=== PATIENT | female | born 2000 | race African-American/Black ===

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

== ENCOUNTER 2021-10-12 13:46 | Emergency (ER) | payer OTHER ==
[2021-10-12 14:06] VITALS: BP 107/69; PULSE 76; TEMP 97.9; BMI 24.1
[2021-10-12 14:59] LABS: EPI CELLS 26 /uL (0-25.1); HYALINE CASTS 2 /uL (0-3.1); PH,URINE 6.5 (5.0-8.0); URINE APPEARANCE CLOUDY; URINE BACTERIA 1481 /uL (0-1359); URINE BILIRUBIN NEGATIVE (NEGATIVE); URINE COLOR YELLOW; URINE GLUCOSE (UA) NEGATIVE (NEGATIVE); URINE KETONE TRACE (NEGATIVE); URINE LEUK ESTERASE 3+ (NEGATIVE); URINE NITRITE NEGATIVE (NEGATIVE); URINE PROTEIN NEGATIVE (NEGATIVE); URINE RBC 18 /uL (0-23.9); URINE WBC 2126 /uL (0-25.8)
== END 2021-10-12 15:08 | disposition home or self-care (01) ==
LOC: JERFT 13:46 → JER 13:46 → JERFT 15:08
DX: R30.0 Dysuria (principal); N39.0 Urinary tract infection, site not specified
CPT/HCPCS: 36415; 81003; 84703; 87086; 87186; 87491; 87591; 99283-25

== ENCOUNTER 2021-11-17 17:47 | Emergency (ER) | payer OTHER ==
[2021-11-17 18:04] VITALS: BP 113/73; PULSE 74; TEMP 97.9; BMI 25.7
[2021-11-17] MEDS ORDERED: IBUPROFEN 400 MG TABLET (FP) PO ONE ×2 (18:27→18:43)
[2021-11-17] MEDS ORDERED: AMOX TR/POT CLAV 875MG/125MG TABLETS (FP) PO ONE (18:27)
[2021-11-17] MEDS ORDERED: AMOX TR/POT CLAV 875MG/125MG TABLETS (FP) ONE (18:43)
[2021-11-17 19:23] LABS: EPI CELLS >36 /uL (0-25.1); HYALINE CASTS 6 /uL (0-3.1); PH,URINE 6.5 (5.0-8.0); URINE APPEARANCE CLOUDY; URINE BACTERIA 629 /uL (0-1359); URINE BILIRUBIN NEGATIVE (NEGATIVE); URINE COLOR DK YELLOW; URINE GLUCOSE (UA) NEGATIVE (NEGATIVE); URINE KETONE 2+ (NEGATIVE); URINE LEUK ESTERASE TRACE (NEGATIVE); URINE NITRITE NEGATIVE (NEGATIVE); URINE PROTEIN TRACE (NEGATIVE); URINE RBC 10 /uL (0-23.9); URINE WBC 24 /uL (0-25.8)
== END 2021-11-17 19:51 | disposition home or self-care (01) ==
LOC: JERFT 17:47
DX: S60.419A Abrasion of unspecified finger, initial encounter (principal); W50.2XXA Accidental twist by another person, initial encounter
CPT/HCPCS: 36415; 81003; 87086; 87491; 87591; 99283-25

== ENCOUNTER 2022-01-18 11:33 | Emergency (ER) | payer OTHER ==
[2022-01-18 12:02] VITALS: BP 117/76; PULSE 99; TEMP 100; BMI 25.0
[2022-01-18 14:48] LABS: EPI CELLS 18 /uL (0-25.1); HYALINE CASTS 11 /uL (0-3.1); URINE APPEARANCE CLOUDY; URINE BACTERIA >9,000 /uL (0-1359); URINE BILIRUBIN NEGATIVE (NEGATIVE); URINE COLOR YELLOW; URINE GLUCOSE (UA) NEGATIVE (NEGATIVE); URINE KETONE 2+ (NEGATIVE); URINE LEUK ESTERASE 2+ (NEGATIVE); URINE NITRITE NEGATIVE (NEGATIVE); URINE PROTEIN 1+ (NEGATIVE); URINE RBC 18 /uL (0-23.9); URINE UROBILINOGEN 0.2 mg/dL (0.2-1.0); URINE WBC 685 /uL (0-25.8)
[2022-01-18 14:58] LABS: HCG,QUALITATIVE URINE Negative
== END 2022-01-18 16:20 | disposition home or self-care (01) ==
LOC: JER 11:33 → JERFT 11:33
DX: S09.90XA Unspecified injury of head, initial encounter (principal); N30.00 Acute cystitis without hematuria; Y04.8XXA Assault by other bodily force, initial encounter; Y07.03 Male partner, perpetrator of maltreatment and neglect
CPT/HCPCS: 70450-TC; 81003; 84703; 87086; 87186; 99284-25

== ENCOUNTER 2022-09-03 15:43 | Emergency (ER) | payer OTHER ==
[2022-09-03 16:02] VITALS: BP 119/71; PULSE 75; RESP 16; TEMP 98.1; BMI 21.4
[2022-09-03 16:35] LABS: EPI CELLS >36 /uL (0-25.1); HYALINE CASTS 2 /uL (0-3.1); PH,URINE 6.5 (5.0-8.0); URINE APPEARANCE CLOUDY; URINE BACTERIA 412 /uL (0-1359); URINE BILIRUBIN NEGATIVE (NEGATIVE); URINE COLOR YELLOW; URINE GLUCOSE (UA) NEGATIVE (NEGATIVE); URINE KETONE TRACE (NEGATIVE); URINE LEUK ESTERASE 1+ (NEGATIVE); URINE NITRITE NEGATIVE (NEGATIVE); URINE PROTEIN NEGATIVE (NEGATIVE); URINE RBC 8 /uL (0-23.9); URINE UROBILINOGEN 0.2 mg/dL (0.2-1.0); URINE WBC 133 /uL (0-25.8)
== END 2022-09-03 17:10 | disposition home or self-care (01) ==
LOC: JERFT 15:43
DX: N30.00 Acute cystitis without hematuria (principal); B37.9 Candidiasis, unspecified
CPT/HCPCS: 81003; 84703; 87070; 87077; 87086; 87205; 99283-25

== ENCOUNTER 2022-09-18 22:25 | Emergency (ER) | payer OTHER ==
[2022-09-18 22:47] VITALS: BP 114/75; PULSE 81; RESP 20; TEMP 98.3; BMI 23.8
[2022-09-18 23:31] LABS: EPI CELLS 26 /uL (0-25.1); HCG,QUALITATIVE URINE Negative; HYALINE CASTS 2 /uL (0-3.1); URINE APPEARANCE CLOUDY; URINE BACTERIA 399 /uL (0-1359); URINE BILIRUBIN NEGATIVE (NEGATIVE); URINE COLOR YELLOW; URINE GLUCOSE (UA) NEGATIVE (NEGATIVE); URINE KETONE NEGATIVE (NEGATIVE); URINE LEUK ESTERASE 2+ (NEGATIVE); URINE NITRITE NEGATIVE (NEGATIVE); URINE PROTEIN 2+ (NEGATIVE); URINE RBC 47 /uL (0-23.9); URINE WBC 2885 /uL (0-25.8)
[2022-09-18] MEDS ORDERED: CEPHALEXIN MONOHYDRATE 500 MG CAPSULE (UD) PO ONE (23:44)
[2022-09-18] MEDS ORDERED: IBUPROFEN 600 MG TABLET (FP) PO ONE ×2 (23:47→23:48)
[2022-09-18] MEDS ORDERED: CEPHALEXIN MONOHYDRATE 500 MG CAPSULE (UD) ONE (23:49)
== END 2022-09-18 23:59 | disposition home or self-care (01) ==
LOC: JER 22:25
DX: S90.32XA Contusion of left foot, initial encounter (principal); N39.0 Urinary tract infection, site not specified; W22.8XXA Striking against or struck by other objects, initial encounter
CPT/HCPCS: 73630-TC-LT; 81003; 84703; 87077; 87086; 99284-25

== ENCOUNTER 2022-11-19 12:51 | Emergency (ER) | payer OTHER ==
[2022-11-19 13:03] VITALS: BP 133/69; PULSE 89; RESP 18; TEMP 97.8; BMI 24.7
== END 2022-11-19 13:45 | disposition home or self-care (01) ==
LOC: JERFT 12:51
DX: R22.0 Localized swelling, mass and lump, head (principal)
CPT/HCPCS: 99282-25

== ENCOUNTER 2023-03-21 16:54 | Emergency (ER) | payer OTHER ==
[2023-03-21 17:02] VITALS: BP 129/82; PULSE 73; RESP 19; TEMP 98.6; BMI 26.1
[2023-03-21 17:33] LABS: BASO % 0.7 % (0-2.0); EOS % 3.2 % (0-4.5); HEMOGLOBIN 11.5 GM/dL (10.7-15.3); LYMPH % 38.3 % (8-40); MCH 27.1 pg (25.7-33.7); MCHC 32.9 g/dl (32.0-36.0); MEAN CELL VOLUME 82.2 fl (80-96); MEAN PLT VOLUME 8.6 fl (7.5-11.1); MONO % 8.1 % (3.8-10.2); NEUT % 49.7 % (42.8-82.8); PLATELET COUNT 263 10^3/uL (134-434); RBC 4.26 M/mm3 (3.60-5.2); WHITE BLOOD COUNT 5.6 K/mm3 (4.0-10.0)
[2023-03-21 17:59] LABS: CHLORIDE 108 mmol/L (98-107); POTASSIUM 4.2 mmol/L (3.5-5.1); SODIUM 140 mmol/L (136-145)
[2023-03-21 18:00] LABS: CALCIUM 8.8 mg/dL (8.5-10.1)
[2023-03-21 18:01] LABS: ANION GAP 5 MMOL/L (8-16); BLOOD UREA NITROGEN 11.1 mg/dL (7-18); CO2 26 mmol/L (21-32); GLUCOSE,RANDOM 85 mg/dL (74-106)
[2023-03-21 18:04] LABS: CREATININE 0.7 mg/dL (0.55-1.3)
[2023-03-21 18:24] LABS: HCG,QUALITATIVE URINE Negative
[2023-03-21] MEDS ORDERED: ACETAMINOPHEN 1000 MG/100 ML BAG IVPB ONE (18:25)
[2023-03-21 18:26] LABS: EPI CELLS >36 /uL (0-25.1); HYALINE CASTS 85 /uL (0-3.1); URINE APPEARANCE CLOUDY; URINE BACTERIA 15 /uL (0-1359); URINE BILIRUBIN 1+ (NEGATIVE); URINE COLOR RED; URINE GLUCOSE (UA) NEGATIVE (NEGATIVE); URINE KETONE TRACE (NEGATIVE); URINE LEUK ESTERASE 1+ (NEGATIVE); URINE NITRITE NEGATIVE (NEGATIVE); URINE PROTEIN 3+ (NEGATIVE); URINE RBC 51476 /uL (0-23.9); URINE UROBILINOGEN 0.2 mg/dL (0.2-1.0); URINE WBC 236 /uL (0-25.8)
[2023-03-21] MEDS ORDERED: ACETAMINOPHEN INJECTION 100 ML IVPB ONE (18:27)
== END 2023-03-21 21:26 | disposition home or self-care (01) ==
LOC: JER 16:54
PROC: 3E033NZ Introduction of Analgesics, Hypnotics, Sedatives into Peripheral Vein, Percutaneous Approach (ICD-10-PCS; principal; 2023-03-21)
DX: N93.9 Abnormal uterine and vaginal bleeding, unspecified (principal)
CPT/HCPCS: 36415; 76830-TC; 80048; 81003; 84702; 84703; 85025; 86850; 86900; 86901; 87077; 87086; 99284-25

== ENCOUNTER 2023-06-09 17:59 | Emergency (ER) | payer OTHER ==
[2023-06-09 18:03] VITALS: BP 116/69; PULSE 80; RESP 18; TEMP 98.3; BMI 25.7
[2023-06-09] MEDS ORDERED: ACETAMINOPHEN 650 MG/20.3 ML ORAL SOLUTION (CUPS) PO ONE (18:47)
[2023-06-09] MEDS ORDERED: DEXAMETHASONE LIQUID 0.5 MG/5 ML PO ONE (18:47)
[2023-06-09] MEDS ORDERED: SODIUM CHLORIDE 0.9% 1000 ML INFUS.BAG IV ONE (19:01)
[2023-06-09] MEDS ORDERED: ACETAMINOPHEN 650 MG/20.3 ML ORAL SOLUTION (CUPS) ONE (19:15)
[2023-06-09] MEDS ORDERED: DEXAMETHASONE SOD PHOSPHATE 10 MG/1 ML VIAL ONE (19:15)
[2023-06-09 19:55] LABS: BASO % 0.8 % (0-2.0); EOS % 5.2 % (0-4.5); HEMATOCRIT 39.8 % (32.4-45.2); HEMOGLOBIN 12.9 GM/dL (10.7-15.3); LYMPH % 21.1 % (8-40); MCH 27.2 pg (25.7-33.7); MCHC 32.5 g/dl (32.0-36.0); MEAN CELL VOLUME 83.6 fl (80-96); MEAN PLT VOLUME 9.2 fl (7.5-11.1); MONO % 8.9 % (3.8-10.2); PLATELET COUNT 322 10^3/uL (134-434); RBC 4.76 M/mm3 (3.60-5.2); WHITE BLOOD COUNT 5.3 K/mm3 (4.0-10.0)
[2023-06-09 19:57] LABS: HCG,QUALITATIVE URINE Negative
[2023-06-09 19:58] LABS: EPI CELLS >36 /uL (0-25.1); HYALINE CASTS 0 /uL (0-3.1); PH,URINE 7.5 (5.0-8.0); URINE APPEARANCE CLEAR; URINE BACTERIA 258 /uL (0-1359); URINE BILIRUBIN NEGATIVE (NEGATIVE); URINE COLOR YELLOW; URINE GLUCOSE (UA) NEGATIVE (NEGATIVE); URINE KETONE 1+ (NEGATIVE); URINE LEUK ESTERASE 1+ (NEGATIVE); URINE NITRITE NEGATIVE (NEGATIVE); URINE PROTEIN NEGATIVE (NEGATIVE); URINE RBC 10 /uL (0-23.9); URINE UROBILINOGEN 0.2 mg/dL (0.2-1.0); URINE WBC 16 /uL (0-25.8)
[2023-06-09 20:18] LABS: POTASSIUM 4.3 mmol/L (3.5-5.1)
[2023-06-09 20:21] LABS: ALBUMIN 4.2 g/dl (3.4-5.0); BLOOD UREA NITROGEN 9.6 mg/dL (7-18); CALCIUM 9.2 mg/dL (8.5-10.1)
[2023-06-09 20:25] LABS: CREATININE 0.8 mg/dL (0.55-1.3)
[2023-06-09 20:26] LABS: BILIRUBIN,TOTAL 0.6 mg/dL (0.2-1); TOT PROT 7.9 g/dl (6.4-8.2)
== END 2023-06-09 21:25 | disposition home or self-care (01) ==
LOC: JER 17:59 → JERFT 17:59
DX: R07.0 Pain in throat (principal); R49.0 Dysphonia; R53.1 Weakness; J02.8 Acute pharyngitis due to other specified organisms; R19.7 Diarrhea, unspecified; H73.891 Other specified disorders of tympanic membrane, right ear; Z20.822 Contact with and (suspected) exposure to COVID-19
CPT/HCPCS: 0241U-QW; 36415; 80053; 81003; 82550; 84703; 85025; 87086; 99284-25

== ENCOUNTER 2023-12-15 12:25 | Emergency (ER) | payer OTHER ==
[2023-12-15 12:41] VITALS: BP 118/72; PULSE 97; RESP 19; TEMP 97.7; BMI 25.5
[2023-12-15] MEDS ORDERED: ACETAMINOPHEN 500 MG TABLET (FP) ONE (13:39)
[2023-12-15] MEDS: ACETAMINOPHEN 500 MG TABLET (FP) PO ONE (13:48)
[2023-12-15] MEDS ORDERED: IBUPROFEN 600 MG TABLET (FP) PO ONE (14:37)
[2023-12-15] MEDS: IBUPROFEN 600 MG TABLET (FP) PO ONE (14:38)
== END 2023-12-15 14:39 | disposition home or self-care (01) ==
LOC: JERFT 12:25
DX: J02.9 Acute pharyngitis, unspecified (principal); R09.81 Nasal congestion; Z20.822 Contact with and (suspected) exposure to COVID-19
CPT/HCPCS: 0241U-QW; 87651; 99283-25

== ENCOUNTER 2024-02-06 06:14 | Emergency (ER) | payer OTHER ==
[2024-02-06 06:23] VITALS: BP 118/78; PULSE 92; RESP 20; TEMP 98.2; BMI 27.4
[2024-02-06 08:19] LABS: EPI CELLS 18 /uL (0-25.1); HYALINE CASTS 2 /uL (0-3.1); URINE APPEARANCE CLEAR; URINE BACTERIA 5478 /uL (0-1359); URINE BILIRUBIN NEGATIVE (NEGATIVE); URINE COLOR YELLOW; URINE GLUCOSE (UA) NEGATIVE (NEGATIVE); URINE KETONE TRACE (NEGATIVE); URINE LEUK ESTERASE TRACE (NEGATIVE); URINE NITRITE NEGATIVE (NEGATIVE); URINE PROTEIN NEGATIVE (NEGATIVE); URINE RBC 7 /uL (0-23.9); URINE UROBILINOGEN 0.2 mg/dL (0.2-1.0); URINE WBC 143 /uL (0-25.8)
[2024-02-06 08:43] LABS: HCG,QUALITATIVE URINE Negative
[2024-02-06] MEDS ORDERED: FLUCONAZOLE 150 MG TABLET PO ONE (08:50)
[2024-02-06] MEDS ORDERED: CEPHALEXIN MONOHYDRATE 500 MG CAPSULE (UD) ONE (08:50)
[2024-02-06] MEDS: FLUCONAZOLE 150 MG TABLET PO ONE (08:57)
[2024-02-06] MEDS: CEPHALEXIN MONOHYDRATE 500 MG CAPSULE (UD) PO ONE (08:57)
== END 2024-02-06 09:02 | disposition home or self-care (01) ==
LOC: JER 06:14
DX: N30.00 Acute cystitis without hematuria (principal); B37.31 Acute candidiasis of vulva and vagina
CPT/HCPCS: 81003; 84703; 87086; 87186; 99283-25

== ENCOUNTER 2024-04-26 09:33 | Emergency (ER) | payer OTHER ==
[2024-04-26 09:41] VITALS: BP 113/64; PULSE 82; RESP 18; TEMP 98.4; BMI 26.9
[2024-04-26 12:27] LABS: HIV INTERPRETATION NEGATIVE (NEGATIVE)
== END 2024-04-26 11:18 | disposition home or self-care (01) ==
LOC: JER 09:33
DX: R09.81 Nasal congestion (principal); Z20.822 Contact with and (suspected) exposure to COVID-19
CPT/HCPCS: 0241U-QW; 36415; 86803; 87389; 99283-25